=== PATIENT | male | born 1955 | race African-American/Black ===

== ENCOUNTER → 2021-11-20 | Outpatient (CLI) | payer OTHER | LOC: COL.RAD 11-17 07:30 | DX: M47.22 Other spondylosis with radiculopathy, cervical region (principal); M48.02 Spinal stenosis, cervical region; M48.061 Spinal stenosis, lumbar region without neurogenic claudication; M43.16 Spondylolisthesis, lumbar region ==

== ENCOUNTER 2022-01-22 13:59 | Outpatient (RCR) | payer OTHER | END 2022-01-24 | disposition home or self-care (01) | LOC: WSPT | DX: M43.16 Spondylolisthesis, lumbar region (principal); M54.12 Radiculopathy, cervical region; G95.89 Other specified diseases of spinal cord ==

== ENCOUNTER 2022-03-13 15:45 | Outpatient (RCR) | payer OTHER | END 2022-03-26 | disposition home or self-care (01) | LOC: WSC | DX: M47.26 Other spondylosis with radiculopathy, lumbar region (principal); G95.89 Other specified diseases of spinal cord ==